=== PATIENT | male | born 1955 | race Caucasian/White ===

== ENCOUNTER 2023-01-23 08:19 | Outpatient (CLI) | payer MEDICARE, BC | END 2023-01-23 08:20 | disposition home or self-care (01) | LOC: CSHWCC 08:19 | PROVIDERS: ATTEND Nurse Practitioner Family | DX: E11.621 Type 2 diabetes mellitus with foot ulcer (principal); L97.415 Non-pressure chronic ulcer of right heel and midfoot with muscle involvement without evidence of necrosis; R60.1 Generalized edema | CPT/HCPCS: 97139; 97597; G0463; 99203 ==

== ENCOUNTER 2023-01-30 11:46 | Outpatient (CLI) | payer MEDICARE, BC | END 2023-01-30 11:47 | disposition home or self-care (01) | LOC: CSHWCC 11:46 | PROVIDERS: ATTEND Nurse Practitioner Family | DX: E10.621 Type 1 diabetes mellitus with foot ulcer (principal); L97.415 Non-pressure chronic ulcer of right heel and midfoot with muscle involvement without evidence of necrosis; R60.0 Localized edema | CPT/HCPCS: 97139; G0463; 99213 ==

== ENCOUNTER 2023-02-06 11:13 | Outpatient (CLI) | payer MEDICARE, BC | END 2023-02-06 11:14 | disposition home or self-care (01) | LOC: CSHWCC 11:13 | PROVIDERS: ATTEND Nurse Practitioner Family | DX: E10.621 Type 1 diabetes mellitus with foot ulcer (principal); R60.1 Generalized edema; L97.415 Non-pressure chronic ulcer of right heel and midfoot with muscle involvement without evidence of necrosis | CPT/HCPCS: 97602 ==

== ENCOUNTER 2023-02-12 14:14 | Outpatient (CLI) | payer MEDICARE, BC | END 2023-02-12 14:15 | disposition home or self-care (01) | LOC: CSHWCC 14:14 | PROVIDERS: ATTEND Nurse Practitioner Family | DX: E10.621 Type 1 diabetes mellitus with foot ulcer (principal); L97.415 Non-pressure chronic ulcer of right heel and midfoot with muscle involvement without evidence of necrosis; R60.1 Generalized edema | CPT/HCPCS: 97602 ==

== ENCOUNTER 2023-02-14 13:26 | Outpatient (CLI) | payer MEDICARE, BC | END 2023-02-14 13:27 | disposition home or self-care (01) | LOC: CSHWCC 13:26 | PROVIDERS: ATTEND Nurse Practitioner Family | DX: E10.621 Type 1 diabetes mellitus with foot ulcer (principal); L97.415 Non-pressure chronic ulcer of right heel and midfoot with muscle involvement without evidence of necrosis | CPT/HCPCS: 29445 ==

== ENCOUNTER 2023-02-16 12:03 | Outpatient (CLI) | payer MEDICARE, BC | END 2023-02-16 12:04 | disposition home or self-care (01) | LOC: CSHWCC 12:03 | PROVIDERS: ATTEND Nurse Practitioner Family | DX: E10.621 Type 1 diabetes mellitus with foot ulcer (principal); L97.415 Non-pressure chronic ulcer of right heel and midfoot with muscle involvement without evidence of necrosis | CPT/HCPCS: 29445 ==

== ENCOUNTER 2023-02-19 13:12 | Outpatient (CLI) | payer MEDICARE, BC | END 2023-02-19 13:13 | disposition home or self-care (01) | LOC: CSHWCC 13:12 | PROVIDERS: ATTEND Nurse Practitioner Family | DX: E10.621 Type 1 diabetes mellitus with foot ulcer (principal); L97.415 Non-pressure chronic ulcer of right heel and midfoot with muscle involvement without evidence of necrosis; R60.0 Localized edema | CPT/HCPCS: 29445 ==

== ENCOUNTER 2023-02-22 12:57 | Outpatient (CLI) | payer MEDICARE, BC | END 2023-02-22 12:58 | disposition home or self-care (01) | LOC: CSHWCC 12:57 | PROVIDERS: ATTEND Nurse Practitioner Family | DX: E10.621 Type 1 diabetes mellitus with foot ulcer (principal); L97.415 Non-pressure chronic ulcer of right heel and midfoot with muscle involvement without evidence of necrosis | CPT/HCPCS: 29445 ==

== ENCOUNTER 2023-03-01 13:23 | Outpatient (CLI) | payer MEDICARE, BC | END 2023-03-01 13:24 | disposition home or self-care (01) | LOC: CSHWCC 13:23 | PROVIDERS: ATTEND Nurse Practitioner Family | DX: S80.811D Abrasion, right lower leg, subsequent encounter (principal); E10.621 Type 1 diabetes mellitus with foot ulcer; L97.415 Non-pressure chronic ulcer of right heel and midfoot with muscle involvement without evidence of necrosis | CPT/HCPCS: 29445; 29700 ==

== ENCOUNTER 2023-03-05 13:16 | Outpatient (CLI) | payer MEDICARE, BC | END 2023-03-05 13:17 | disposition home or self-care (01) | LOC: CSHWCC 13:16 | PROVIDERS: ATTEND Nurse Practitioner Family | DX: S80.811D Abrasion, right lower leg, subsequent encounter (principal); E10.621 Type 1 diabetes mellitus with foot ulcer; L97.415 Non-pressure chronic ulcer of right heel and midfoot with muscle involvement without evidence of necrosis | CPT/HCPCS: 29445 ==

== ENCOUNTER 2023-08-08 08:58 | Outpatient (CLI) | payer MEDICARE, BC | END 2023-08-08 08:59 | disposition home or self-care (01) | LOC: CSHWCC 08:58 | PROVIDERS: ATTEND Nurse Practitioner Family | DX: E10.621 Type 1 diabetes mellitus with foot ulcer (principal); L97.412 Non-pressure chronic ulcer of right heel and midfoot with fat layer exposed | CPT/HCPCS: 11042; G0463; 99213 ==

== ENCOUNTER 2023-08-16 11:43 | Outpatient (CLI) | payer MEDICARE, BC | END 2023-08-16 11:44 | disposition home or self-care (01) | LOC: CSHWCC 11:43 | PROVIDERS: ATTEND Nurse Practitioner Family | DX: E10.621 Type 1 diabetes mellitus with foot ulcer (principal); L97.412 Non-pressure chronic ulcer of right heel and midfoot with fat layer exposed | CPT/HCPCS: 11042 ==

== ENCOUNTER 2023-08-21 11:09 | Outpatient (CLI) | payer MEDICARE, BC | END 2023-08-21 11:10 | disposition home or self-care (01) | LOC: CSHWCC 11:09 | PROVIDERS: ATTEND Nurse Practitioner Family | DX: E10.621 Type 1 diabetes mellitus with foot ulcer (principal); L97.412 Non-pressure chronic ulcer of right heel and midfoot with fat layer exposed | CPT/HCPCS: 11042; 87070; 87077; 87186; 87205; 97605 ==

== ENCOUNTER 2023-09-04 | Outpatient (CLI) | payer MEDICARE, BC | END 2023-09-04 13:19 | disposition home or self-care (01) | DX: E10.621 Type 1 diabetes mellitus with foot ulcer (principal); L97.412 Non-pressure chronic ulcer of right heel and midfoot with fat layer exposed ==

== ENCOUNTER 2023-09-18 11:14 | Outpatient (CLI) | payer MEDICARE, BC | END 2023-09-18 11:15 | disposition home or self-care (01) | LOC: CSHWCC 11:14 | PROVIDERS: ATTEND Nurse Practitioner Family | DX: L97.412 Non-pressure chronic ulcer of right heel and midfoot with fat layer exposed (principal); E10.621 Type 1 diabetes mellitus with foot ulcer | CPT/HCPCS: 11042 ==

== ENCOUNTER 2023-11-13 10:24 | Outpatient (CLI) | payer MEDICARE, BC | END 2023-11-13 10:25 | disposition home or self-care (01) | LOC: CSHWCC 10:24 | PROVIDERS: ATTEND Nurse Practitioner Family | DX: T81.31XD Disruption of external operation (surgical) wound, not elsewhere classified, subsequent encounter (principal); E10.621 Type 1 diabetes mellitus with foot ulcer; M86.171 Other acute osteomyelitis, right ankle and foot; L97.519 Non-pressure chronic ulcer of other part of right foot with unspecified severity | CPT/HCPCS: 11042 ==

== ENCOUNTER 2023-11-29 13:18 | Outpatient (CLI) | payer MEDICARE, BC ==
[2023-11-29 14:10] LABS: ALT (SGPT) 20 U/L (8-55); AST (SGOT) 24 U/L (5-34); Albumin 3.3 g/dL (3.4-4.8); Alkaline Phosphatase 81 U/L (40-110); Anion Gap 12 mmol/L (10-20); BUN (Urea Nitrogen) 24 mg/dL (8.4-25.7); Bilirubin, Total 0.4 mg/dL (0.2-1.2); Calc. Creatinine Clearance 0 mL/min (70-130); Calcium 9.4 mg/dL (7.8-10.44); Carbon Dioxide 26 mmol/L (23-31); Chloride 103 mmol/L (98-107); Estimated GFR 60; Globulin 5.4 g/dL (2.4-3.5); Glucose 143 mg/dL (80-115); Potassium 4.3 mmol/L (3.5-5.1); Protein, Total 8.7 g/dL (5.8-8.1); Sodium 137 mmol/L (136-145)
== END 2023-11-29 13:19 | disposition home or self-care (01) ==
LOC: CSHWCC 13:18
PROVIDERS: ATTEND Nurse Practitioner Family
DX: T81.31XD Disruption of external operation (surgical) wound, not elsewhere classified, subsequent encounter (principal); E10.621 Type 1 diabetes mellitus with foot ulcer; M86.171 Other acute osteomyelitis, right ankle and foot
CPT/HCPCS: 11042; 36415; 80053

== ENCOUNTER 2023-12-03 10:48 | Outpatient (CLI) | payer MEDICARE, BC | END 2023-12-03 10:49 | disposition home or self-care (01) | LOC: CSHWCC 10:48 | PROVIDERS: ATTEND Nurse Practitioner Family | DX: T81.31XD Disruption of external operation (surgical) wound, not elsewhere classified, subsequent encounter (principal); E10.621 Type 1 diabetes mellitus with foot ulcer; M86.171 Other acute osteomyelitis, right ankle and foot; L97.519 Non-pressure chronic ulcer of other part of right foot with unspecified severity | CPT/HCPCS: 11042 ==

== ENCOUNTER 2023-12-07 13:23 | Outpatient (CLI) | payer MEDICARE, BC | END 2023-12-07 13:24 | disposition home or self-care (01) | LOC: CSHWCC 13:23 | PROVIDERS: ATTEND Nurse Practitioner Family | DX: T81.31XD Disruption of external operation (surgical) wound, not elsewhere classified, subsequent encounter (principal); E10.621 Type 1 diabetes mellitus with foot ulcer; M86.171 Other acute osteomyelitis, right ankle and foot; L97.519 Non-pressure chronic ulcer of other part of right foot with unspecified severity | CPT/HCPCS: 99212; G0463 ==

== ENCOUNTER 2023-12-12 12:13 | Outpatient (CLI) | payer MEDICARE, BC | END 2023-12-12 12:14 | disposition home or self-care (01) | LOC: CSHWCC 12:13 | PROVIDERS: ATTEND Nurse Practitioner Family | DX: T81.31XD Disruption of external operation (surgical) wound, not elsewhere classified, subsequent encounter (principal); E10.621 Type 1 diabetes mellitus with foot ulcer; L97.509 Non-pressure chronic ulcer of other part of unspecified foot with unspecified severity; M86.171 Other acute osteomyelitis, right ankle and foot | CPT/HCPCS: 11042 ==

== ENCOUNTER 2023-12-17 12:07 | Outpatient (CLI) | payer MEDICARE, BC | END 2023-12-17 12:08 | disposition home or self-care (01) | LOC: CSHWCC 12:07 | PROVIDERS: ATTEND Preventive Medicine Undersea and Hyperbaric Medicine | DX: T81.31XD Disruption of external operation (surgical) wound, not elsewhere classified, subsequent encounter (principal); E10.621 Type 1 diabetes mellitus with foot ulcer; L97.519 Non-pressure chronic ulcer of other part of right foot with unspecified severity; M86.171 Other acute osteomyelitis, right ankle and foot | CPT/HCPCS: 29445 ==

== ENCOUNTER 2023-12-20 11:40 | Outpatient (CLI) | payer MEDICARE, BC | END 2023-12-20 11:41 | disposition home or self-care (01) | LOC: CSHWCC 11:40 | PROVIDERS: ATTEND Nurse Practitioner Family | DX: T81.31XD Disruption of external operation (surgical) wound, not elsewhere classified, subsequent encounter (principal); E10.621 Type 1 diabetes mellitus with foot ulcer; M86.171 Other acute osteomyelitis, right ankle and foot | CPT/HCPCS: 11042 ==

== ENCOUNTER 2023-12-20 14:16 | Outpatient (CLI) | payer MEDICARE, BC | END 2023-12-20 14:17 | disposition home or self-care (01) | LOC: CSHRAD 14:16 | PROVIDERS: ATTEND Preventive Medicine Undersea and Hyperbaric Medicine | DX: M86.171 Other acute osteomyelitis, right ankle and foot (principal) ==

== ENCOUNTER 2024-01-04 15:09 | Outpatient (CLI) | payer MEDICARE, BC | END 2024-01-04 15:10 | disposition home or self-care (01) | LOC: CSHWCC 15:09 | PROVIDERS: ATTEND Nurse Practitioner Family | DX: T81.31XD Disruption of external operation (surgical) wound, not elsewhere classified, subsequent encounter (principal); E10.621 Type 1 diabetes mellitus with foot ulcer; M86.171 Other acute osteomyelitis, right ankle and foot; L97.519 Non-pressure chronic ulcer of other part of right foot with unspecified severity ==

== ENCOUNTER 2024-01-07 11:07 | Outpatient (CLI) | payer MEDICARE, BC | END 2024-01-07 11:08 | disposition home or self-care (01) | LOC: CSHWCC 11:07 | PROVIDERS: ATTEND Nurse Practitioner Family | DX: T81.31XD Disruption of external operation (surgical) wound, not elsewhere classified, subsequent encounter (principal); E10.621 Type 1 diabetes mellitus with foot ulcer; M86.171 Other acute osteomyelitis, right ankle and foot | CPT/HCPCS: 29445 ==

== ENCOUNTER 2024-01-10 15:42 | Outpatient (CLI) | payer MEDICARE, BC | END 2024-01-10 15:43 | disposition home or self-care (01) | LOC: CSHWCC 15:42 | PROVIDERS: ATTEND Nurse Practitioner Family | DX: E10.621 Type 1 diabetes mellitus with foot ulcer (principal); M86.171 Other acute osteomyelitis, right ankle and foot; T81.31XD Disruption of external operation (surgical) wound, not elsewhere classified, subsequent encounter | CPT/HCPCS: 29445 ==

== ENCOUNTER 2024-01-14 15:41 | Outpatient (CLI) | payer MEDICARE, BC | END 2024-01-14 15:42 | disposition home or self-care (01) | LOC: CSHWCC 15:41 | PROVIDERS: ATTEND Family Medicine | DX: E10.621 Type 1 diabetes mellitus with foot ulcer (principal); L97.519 Non-pressure chronic ulcer of other part of right foot with unspecified severity; T81.31XD Disruption of external operation (surgical) wound, not elsewhere classified, subsequent encounter; M86.171 Other acute osteomyelitis, right ankle and foot | CPT/HCPCS: 29445; G0463; 99213 ==

== ENCOUNTER 2024-01-17 15:11 | Outpatient (CLI) | payer MEDICARE, BC | END 2024-01-17 15:12 | disposition home or self-care (01) | LOC: CSHWCC 15:11 | PROVIDERS: ATTEND Nurse Practitioner Family | DX: T81.31XD Disruption of external operation (surgical) wound, not elsewhere classified, subsequent encounter (principal); E10.621 Type 1 diabetes mellitus with foot ulcer; M86.171 Other acute osteomyelitis, right ankle and foot | CPT/HCPCS: 29445 ==

== ENCOUNTER 2024-03-14 13:01 | Outpatient (CLI) | payer MEDICARE, BC | END 2024-03-14 13:02 | disposition home or self-care (01) | LOC: CSHWCC 13:01 | PROVIDERS: ATTEND Nurse Practitioner Family | DX: L89.94 Pressure ulcer of unspecified site, stage 4 (principal); E10.621 Type 1 diabetes mellitus with foot ulcer; M86.171 Other acute osteomyelitis, right ankle and foot | CPT/HCPCS: 29445 ==

== ENCOUNTER 2024-03-18 09:47 | Outpatient (CLI) | payer MEDICARE, BC | END 2024-03-18 09:48 | disposition home or self-care (01) | LOC: CSHWCC 09:47 | PROVIDERS: ATTEND Nurse Practitioner Family | DX: L89.94 Pressure ulcer of unspecified site, stage 4 (principal); E10.621 Type 1 diabetes mellitus with foot ulcer; L97.509 Non-pressure chronic ulcer of other part of unspecified foot with unspecified severity; M86.171 Other acute osteomyelitis, right ankle and foot | CPT/HCPCS: 11042 ==

== ENCOUNTER 2024-03-21 11:13 | Outpatient (CLI) | payer MEDICARE, BC | END 2024-03-21 11:14 | disposition home or self-care (01) | LOC: CSHWCC 11:13 | PROVIDERS: ATTEND Nurse Practitioner Family | DX: L89.94 Pressure ulcer of unspecified site, stage 4 (principal); E10.621 Type 1 diabetes mellitus with foot ulcer; L97.509 Non-pressure chronic ulcer of other part of unspecified foot with unspecified severity; M86.171 Other acute osteomyelitis, right ankle and foot | CPT/HCPCS: 29445; 99212; G0463 ==

== ENCOUNTER 2024-03-28 10:49 | Outpatient (CLI) | payer MEDICARE, BC | END 2024-03-28 10:50 | disposition home or self-care (01) | LOC: CSHWCC 10:49 | PROVIDERS: ATTEND Nurse Practitioner Family | DX: L89.94 Pressure ulcer of unspecified site, stage 4 (principal); E10.621 Type 1 diabetes mellitus with foot ulcer; M86.171 Other acute osteomyelitis, right ankle and foot | CPT/HCPCS: 97597 ==

== ENCOUNTER 2024-04-04 12:24 | Outpatient (CLI) | payer MEDICARE, BC | END 2024-04-04 12:25 | disposition home or self-care (01) | LOC: CSHWCC 12:24 | PROVIDERS: ATTEND Nurse Practitioner Family | DX: L89.94 Pressure ulcer of unspecified site, stage 4 (principal); E10.621 Type 1 diabetes mellitus with foot ulcer; M86.171 Other acute osteomyelitis, right ankle and foot | CPT/HCPCS: 29445 ==

== ENCOUNTER 2024-04-11 09:45 | Outpatient (CLI) | payer MEDICARE, BC | END 2024-04-11 09:46 | disposition home or self-care (01) | LOC: CSHWCC 09:45 | PROVIDERS: ATTEND Nurse Practitioner Family | DX: L89.94 Pressure ulcer of unspecified site, stage 4 (principal); E10.621 Type 1 diabetes mellitus with foot ulcer; M86.171 Other acute osteomyelitis, right ankle and foot | CPT/HCPCS: 99213; G0463 ==

== ENCOUNTER 2024-04-15 08:16 | Outpatient (CLI) | payer MEDICARE, BC | END 2024-04-15 08:17 | disposition home or self-care (01) | LOC: CSHWCC 08:16 | PROVIDERS: ATTEND Nurse Practitioner Family | DX: L89.94 Pressure ulcer of unspecified site, stage 4 (principal); E10.621 Type 1 diabetes mellitus with foot ulcer; M86.171 Other acute osteomyelitis, right ankle and foot; L97.509 Non-pressure chronic ulcer of other part of unspecified foot with unspecified severity | CPT/HCPCS: 99212; G0463 ==

== ENCOUNTER → 2025-01-14 | Outpatient (CLI) | payer MEDICARE, BC | LOC: CSHWCC 09:15 | PROVIDERS: ATTEND Nurse Practitioner Family | DX: E10.621 Type 1 diabetes mellitus with foot ulcer (principal); L97.522 Non-pressure chronic ulcer of other part of left foot with fat layer exposed | CPT/HCPCS: 11042; G0463; 99212 ==

== ENCOUNTER 2025-01-19 14:46 | Outpatient (CLI) | payer MEDICARE, BC | END 2025-01-19 14:47 | disposition home or self-care (01) | LOC: CSHWCC 14:46 | PROVIDERS: ATTEND Nurse Practitioner Family | DX: E10.621 Type 1 diabetes mellitus with foot ulcer (principal); L97.522 Non-pressure chronic ulcer of other part of left foot with fat layer exposed; L08.9 Local infection of the skin and subcutaneous tissue, unspecified | CPT/HCPCS: 11042; 97597; G0463; 99212 ==

== ENCOUNTER 2025-01-23 09:30 | Outpatient (CLI) | payer MEDICARE, BC | END 2025-01-23 09:31 | disposition home or self-care (01) | LOC: CSHWCC 09:30 | PROVIDERS: ATTEND Nurse Practitioner Family | DX: L89.893 Pressure ulcer of other site, stage 3 (principal); E10.621 Type 1 diabetes mellitus with foot ulcer; L97.522 Non-pressure chronic ulcer of other part of left foot with fat layer exposed; L08.9 Local infection of the skin and subcutaneous tissue, unspecified | CPT/HCPCS: 99211; G0463 ==

== ENCOUNTER 2025-02-06 11:08 | Outpatient (CLI) | payer MEDICARE, BC | END 2025-02-06 11:09 | disposition home or self-care (01) | LOC: CSHWCC 11:08 | PROVIDERS: ATTEND Nurse Practitioner Family | DX: L89.893 Pressure ulcer of other site, stage 3 (principal); E10.621 Type 1 diabetes mellitus with foot ulcer; L97.522 Non-pressure chronic ulcer of other part of left foot with fat layer exposed; L08.9 Local infection of the skin and subcutaneous tissue, unspecified | CPT/HCPCS: 11042 ==

== ENCOUNTER 2025-04-07 12:40 | Outpatient (CLI) | payer MEDICARE, BC | END 2025-04-07 12:41 | disposition home or self-care (01) | LOC: CSHWCC 12:40 | PROVIDERS: ATTEND Nurse Practitioner Family | DX: E10.621 Type 1 diabetes mellitus with foot ulcer (principal); L97.522 Non-pressure chronic ulcer of other part of left foot with fat layer exposed | CPT/HCPCS: 11042; G0463; 99214 ==